=== PATIENT | female | born 1940 | race Caucasian/White ===

== ENCOUNTER 2016-09-16 18:26 | Emergency (ER) | payer OTHER, MEDICARE ==
[~2016-09-16] VITALS: Ht 157.5 cm; Wt 61.2 kg
[2016-09-16 19:11] LABS: ABSOLUTE BASOPHIL COUNT 0 /CUMM (0.0-0.2); ABSOLUTE EOSINOPHIL COUNT 0.1 /CUMM (0.0-0.7); ABSOLUTE GRANULOCYTE CT 6.2 /CUMM (1.4-6.5); ABSOLUTE MONOCYTE COUNT 0.5 /CUMM (0.10-0.60); BASOPHIL % 0.2 % (0.0-2.0); EOSINOPHIL % 0.9 % (0-5); GRANULOCYTE % 80.3 % (42.2-75.2); HEMATOCRIT 37.4 % (37-47); MEAN CORPUSCULAR HGB 29.3 PG (27.0-31.0); MEAN CORPUSCULAR HGB CONC 32.8 G/DL (33.0-37.0); MEAN CORPUSCULAR VOLUME 89.3 FL (81.0-99.0); MEAN PLATELET VOLUME 7.8 FL (7.4-10.4); PLATELET COUNT 438 /CUMM (130-400); RBC DISTRIBUTION WIDTH 14.4 % (11.5-14.5); RED BLOOD CELL CT 4.19 /CUMM (4.20-5.40); WHITE BLOOD CELL COUNT 7.7 /CUMM (4.8-10.8)
--- NOTE | 2016-09-16 19:28 | ED GI/GU/ABDOMINAL COMPLAINT ---
History of Present Illness General Chief Complaint: Abdominal Pain/Flank Pain Stated Complaint: ABDOMINAL PAIN S/P GALLBLADDER SURGERY Source: patient Exam Limitations: no limitations Vital Signs & Intake/Output Vital Signs & Intake/Output Vital Signs Date Time Temp Pulse Resp B/P B/P Pulse O2 O2 Flow FiO2 Mean Ox Delivery Rate 09/16 2148 97.8 80 17 144/80 95 Room Air 09/16 1940 Room Air 09/16 1842 97.7 85 16 159/80 92 ED Intake and Output 09/17 0000 09/16 1200 Intake Total 0 Output Total Balance 0 Intake, Oral 0 Patient 135 lb Weight Weight Reported by Patient Measurement Method Allergies Coded Allergies: codeine (ANAPHYLAXIS 09/16/16) Reconcile Medications Buspirone HCl 5 MG TABLET 1 TAB PO PRN ANXIETY (Reported) Cyanocobalamin (Vitamin B-12) (Unknown Strength) TABLET (Unknown Dose) PO DAILY SUPPLEMENT (Reported) Hydromorphone HCl (Dilaudid) 2 MG TABLET 1 TAB PO BIDP PRN PAIN DO NOT TAKE WHILE OPERATING MOTOR VEHICLES Losartan Potassium 25 MG TABLET 1 TAB PO DAILY BP (Reported) Pravastatin Sodium 10 MG TABLET 1 TAB PO DAILY CHOLESTEROL (Reported) Ubidecarenone (Co Q-10) (Unknown Strength) CAPSULE (Unknown Dose) PO DAILY SUPPLEMENT (Reported) Triage Note: PT HAD HER GALLBLADDER OUT IN [facility] AND THEN PT WAS SEPTIC WAS THERE FOR A WEEK. PT DISCHARGED LAST FRIDAY WENT BACK LAST NIGHT HAVING PAIN UNDER BOTH BREAST INTO HER BACK PT HAD CT SCAN SPENT NIGHT IN HOSPITAL OVERNIGHT. PT WAS TOLD SHE HAS CONSTIPATION AND WAS CLEANED OUT. PT STATES SHE FELT BETTER UNTIL SHE GOT DOWN THE ROAD AND REFUSED TO TAKE HER BACK TO THAT HOSPITAL. Triage Nurses Notes Reviewed? yes ? N Is pt currently ? No Onset: Abrupt Duration: constant Timing: recent history Severity Numbers: 10 Location: generalized abdomen Radiation: shoulder HPI: 76-year-old female who presents emergency room with concerns of abdominal pain with some presents to emergency room with stating that on Friday last week she was complaining of months history of intermittent abdominal pain which she was admitted to [facility] for concerns of cholecystitis she had a cholecystectomy performed that day however patient states that she became septic and received antibiotics and was discharged from [facility] on Friday. Patient also had a cholecystostomy drain placed and had this removed before her discharge on Friday patient states that she received pain medication where she became constipated and was still was complaining of abdominal pain and right shoulder pain where she was again admitted yesterday overnight to [facility] was seen palpable motion medication where patient was "cleaned out" of her bowels however the pain still persists where she was given Dilaudid while she was admitted however no pain medications were prescribed for patient UPON dischargeD . Patient returns to the emergency room to [place] for concerns of right shoulder pain but quadrant abdominal pain with radiation to her back. Patient denies any fever chills cough shortness of breath chest pain and arm pain and jaw pain dysuria with hematuria. (MADELINE MEZA) Past History Travel History Traveled to [facility] past 21 day No Medical History Any Pertinent Medical History? see below for history Cardiovascular: hypertension, hyperlipidemia Surgical History Surgical History: cholecystectomy Psychosocial History What is your primary language Japanese Tobacco Use: Never used ETOH Use: occasional use Illicit Drug Use: denies illicit drug use Family History Hx Contributory? No (MADELINE MEZA) Review of Systems Review of Systems Constitutional: Reports: no symptoms. EENTM: Reports: no symptoms. Respiratory: Reports: no symptoms. Cardiovascular: Reports: no symptoms. GI: Reports: see HPI, abdominal pain. Genitourinary: Reports: no symptoms. Musculoskeletal: Reports: no symptoms. Skin: Reports: no symptoms. Neurological/Psychological: Reports: no symptoms. Hematologic/Endocrine: Reports: no symptoms. Immunologic/Allergic: Reports: no symptoms. All Other Systems: Reviewed and Negative (MADELINE MEZA) Physical Exam Physical Exam General Appearance: mild distress Gastrointestinal: normal bowel sounds, soft Comments: HEENT: Normal EENT exam, Neck: Supple, no lymphadenopathy, normal range of motion without pain or tenderness Back: Nontender, no CVA tenderness. Cardiovascular: Regular rate and rhythms no murmurs rubs or gallops, normal JVP Respiratory: Chest nontender. No respiratory distress.breath sounds clear to auscultation bilaterally Abdomen: Noted well-healing incisional scars with Steri-Strips no active discharge no surrounding swelling or erythema. Patient has right-sided generalized abdominal point tenderness Extremity: No edema, no calf tenderness to palpation, normal and equal pulses. Neuro: Alert oriented x3, motor sensory normal, Skin: No appreciable rash on exposed skin, skin is warm and dry. Psych: Mood and affect is normal, memory and judgment is normal. Core Measures ACS in differential dx? No Severe Sepsis Present: No Septic Shock Present: No (EMBER JACOBS,MADELINE) Progress Differential Diagnosis: AAA, AMI, appendicitis, biliary colic, bowel obstruction , colon cancer, diverticulitis, endometritis, esophageal varices, gastritis, hepatitis, hernia, hemorrhoids, ischemic bowel, inflamm bowel dis, kidney stone, ovarian cyst, ovarian torsion, pancreatitis, PID/cervicitis, peptic ulcer, PUD/ GERD, perforated viscous, SBO, UTI/pyelo Plan of Care: Orders Procedure Date/time Status EKG 09/16 184 Active LIPASE 09/16 183 Complete COMPREHENSIVE METABOLIC PANEL 09/16 183 Complete CBC WITHOUT DIFFERENTIAL 09/16 1829 Complete AMYLASE 09/16 1829 Complete Laboratory Tests 09/16/16 1856: Anion Gap 12, Estimated GFR > 60, BUN/Creatinine Ratio 16.7, Glucose 115 H, Calcium 9.1, Total Bilirubin 0.8, AST 59 H, ALT 118 H, Alkaline Phosphatase 405 H, Total Protein 7.3, Albumin 4.1, Globulin 3.2, Albumin/Globulin Ratio 1.3 , Amylase 64, Lipase 169, CBC w Diff NO MAN DIFF REQ, RBC 4.19 L, MCV 89.3, MCH 29.3, RDW 14.4, MPV 7.8, Gran % 80.3 H, Lymphocytes % 12.7 L, Monocytes % 5.9, Eosinophils % 0.9, Basophils % 0.2, Absolute Granulocytes 6.2, Absolute Lymphocytes 1.0 L, Absolute Monocytes 0.5, Absolute Eosinophils 0.1, Absolute Basophils 0, PUBS MCHC 32.8 L Patient states that she was scanned yesterday at [facility] in which currently transfers of medical records is pending. Patient has likely elevated liver function tests from recent cholecystectomy. Patient is afebrile no leukocytosis patient was given IM Dilaudid which significantly improved her pain. After multiple hours of waiting for patient's medical records to be transferred via fax from [facility] it was not done and on resulted. Patient has significant complete resolution of pain with Dilaudid. Due to history of present illness and exam findings or suspicion of postoperative pain in which I discussed disposition plan with Dr. Flores who evaluated patient and agrees. Patient was strongly advised to follow up with primary care surgeon tomorrow. Upon discharge patient looks well no apparent distress patient was able tolerate by mouth patient was afebrile (MADELINE MEZA) Initial ED EKG: none (MADELINE MEZA) Departure Departure Disposition: HOME OR SELF CARE Condition: Stable Clinical Impression Primary Impression: Post-operative pain Additional Instructions: As discussed follow-up with YOUR surgeon tomorrow for further evaluation treatment. Begin the prescription of Dilaudid for pain and inflammation and begin [id number] stool softeners for BOWEL promotion. If symptoms worsen return to emergency room. Prescriptions are waiting a [facility] Departure Forms: Customer Survey General Discharge Information Prescriptions: Current Visit Scripts Hydromorphone HCl (Dilaudid) 1 TAB PO BIDP PRN PAIN #8 TAB DO NOT TAKE WHILE OPERATING MOTOR VEHICLES (MADELINE MEZA) PA/TRAINING ASSISTANT Co-Sign Statement Statement: ED Attending supervision documentation- [x] I saw and evaluated the patient. I have also reviewed all the pertinent lab results and diagnostic results. I agree with the findings and the plan of care as documented in the PA's/TRAINING ASSISTANT's documentation. [] I have reviewed the ED Record and agree with the PA's/TRAINING ASSISTANT's documentation. [] Additions or exceptions (if any) to the PAs/TRAINING ASSISTANT's note and plan are summarized below: [] (JOVANNI KIRBY,DMITRY Mock)
[2016-09-16] MEDS ORDERED: LOSARTAN POTASS25 M1 PO (19:54)
[2016-09-16] MEDS ORDERED: PRAVASTATIN SOD10 M2 PO (19:54)
[2016-09-16] MEDS ORDERED: BUSPIRONE HCL5 M1 PO (19:54)
[2016-09-16] MEDS ORDERED: CO Q-10200 MG PO (19:55)
[2016-09-16] MEDS ORDERED: VITAMIN B-121000 MC3 PO (19:55)
[2016-09-16] MEDS ORDERED: DILAUDID2 M1 PO (21:17)
[2016-09-16 21:48] VITALS: BP 144/80
== END 2016-09-16 21:49 ==
LOC: ERH 18:26
PROVIDERS: Physician Assistant Medical
DX: G89.18 Other acute postprocedural pain (principal); I10 Essential (primary) hypertension; E78.5 Hyperlipidemia, unspecified
CPT/HCPCS: 93005; 93010; 96372